=== PATIENT | male | born 1970 | race Caucasian/White ===

== ENCOUNTER 2021-08-11 16:55 | Emergency (ER) | payer SELFPAY ==
[~2021-08-11] VITALS: Ht 180.3 cm; Wt 82.0 kg
[2021-08-11 17:03] VITALS: BP 169/108
[2021-08-11] MEDS ORDERED: ONDANSETRON HCL 4MG/2ML INJ IV STA (17:25)
[2021-08-11] MEDS ORDERED: SODIUM CHLORIDE 0.9% 1,000 ML IV ONE (17:30)
== END 2021-08-11 17:45 | disposition left against medical advice (07) ==
LOC: ER 16:55 → CANBEDREQ 22:45
DX: T50.901A Poisoning by unspecified drugs, medicaments and biological substances, accidental (unintentional), initial encounter (principal); J96.00 Acute respiratory failure, unspecified whether with hypoxia or hypercapnia; R00.1 Bradycardia, unspecified; Z88.7 Allergy status to serum and vaccine; Y92.59 Other trade areas as the place of occurrence of the external cause
CPT/HCPCS: 71045; 93005; 99291; J7030